=== PATIENT | female | born 1950 | race Caucasian/White ===

== ENCOUNTER → 2016-11-24 | Outpatient (CLI) | payer BC ==
--- NOTE | 2016-11-24 14:36 | US ---
Complete Pelvic Ultrasound INDICATION: Prolapse. TECHNIQUE: Transabdominal and transvaginal pelvic ultrasound is performed. No priors for comparison. FINDINGS: Uterus measures 8.7 x 4.5 x 6.1 cm. No fibroids. Endometrium measures 3.9 mm. No intrinsic mass or fluid collection. Right ovary measures 2.5 x 1.7 x 1.3 cm. Left ovary measures 2.2 x 1.3 x 2.2 cm. Both are sonographic ally normal with normal color Doppler flow. No free fluid or ascites. IMPRESSION: Normal ultrasound of the uterus and ovaries. This ultrasound does not particularly addres s the relationship of the pelvic structures to the pelvic floor and severity of prolapse.
== END ==
LOC: CIMAGING 08:28
DX: N81.4 Uterovaginal prolapse, unspecified (principal)
CPT/HCPCS: 76856-PO

== ENCOUNTER 2019-02-03 15:30 | Emergency (ER) | payer OTHER, BC ==
--- NOTE | 2019-02-03 15:33 | EDPHY ---
H & P Time Seen by Provider: 02/03/19 15:33 HPI/ROS: HPI CHIEF COMPLAINT: Abdominal pain, vomiting HISTORY OF PRESENT ILLNESS: This is a very pleasant 68-year-old female, history of breast cancer, Graves disease and rheumatoid arthritis, presents emergency room with vomiting, and abdominal pain. The patient states that she went for walk around the [place] the walks about 2 miles, toward the end she was feeling more fatigued. She developed some lower mid abdominal cramping. No chest pain no shortness of breath. She thought maybe she had have a bowel movement. She returned home, was unable to have a bowel movement but vomited multiple times. Nonbilious nonbloody. She noted that she was diaphoretic and lightheaded. Denies chest pain or shortness of breath or racing heart. She arrives emergency room does state that she feels better. She denies any complaints time except some lower abdominal pain crampy. Past Medical History: Significant medical history for rheumatoid arthritis, Graves disease, history of breast cancer, High Calcium Score. Past Surgical History: Bilateral mastectomy due to breast cancer, abdominal flap. Social History: Denies drugs or tobacco. Drinks 2 glasses of wine per evening. Family History: Denies significant premature cardiovascular disease other than strokes in mom and dad. ROS REVIEW OF SYSTEMS: 10 Systems were reviewed and negative with the exception of the elements mentioned in the history of present illness. Exam Constitutional triage nursing summary reviewed, vital signs reviewed, awake/ alert. Eyes normal conjunctivae and sclera, EOMI, PERRLA. HENT normal inspection, atraumatic, moist mucus membranes, no epistaxis, neck supple/ no meningismus, no raccoon eyes. Respiratory clear to auscultation bilaterally, normal breath sounds, no respiratory distress, no wheezing. Cardiovascular rate normal, regular rhythm, no murmur, no edema, distal pulses normal. Gastrointestinal soft, non-tender, no rebound, no guarding, normal bowel sounds, no distension, no pulsatile mass. Genitourinary no CVA tenderness. Musculoskeletal no midline vertebral tenderness, full range of motion, no calf swelling, no tenderness of extremities, no meningismus, good pulses, neurovascularly intact. Skin pink, warm, & dry, no rash, skin atraumatic. Neurologic awake, alert and oriented x 3, AAOx3, moves all 4 extremities equally, motor intact, sensory intact, CN II-XII intact, normal cerebellar, normal vision, normal speech. Psychiatric normal mood/affect. Heme/Lymph/Immune no lymphadenopathy. Differential Diagnosis: Differential diagnosis includes but is not limited to and in no particular order: Bowel obstruction, appendicitis, gallbladder disease, diverticulitis, colitis, enteritis, perforated viscus, gastritis, GERD , esophagitis, urinary tract infection, pyelonephritis, kidney stones Medical Decision Making: Plan for this patient IV establishment IV fluid bolus , EKG, troponin, basic labs, electrolytes, and re-evaluate. Re-evaluation: EKG: Time of EKG 1620, sinus rhythm rate of 62, I do not appreciate acute ischemia. No elevation no depression of the ST segment. Rather unremarkable EKG when compared to this patient's old EKG dated 01/10/2014 is unchanged morphology. Trop 0.01. 1738: Patient re-evaluated this time still complaining of abdominal pain. I did recommend a CT scan abdomen pelvis with IV contrast for abdominal pain she has mid abdominal pain. And given that she vomited multiple times and had ongoing abdominal pain recommend further evaluation of this. No epigastric pain. Denies any chest pain or shortness of breath. However she is refusing the CT scan. At this time she is receiving a 2nd L fluid. Will re-evaluate. 1817: patient here in Er, resting, went to bathroom and had a large amount of diarrhea. States she is feeling much better. Still decling CT scan. Long discussion with her about CT imaging given vomiting, and abdominal pain. ( she understands by not having a CT to help delinate her abdominal pain this could limit her diagnosis/misdiagnosis) Patient decline CT. She would like to go home I discussed given that she is not getting a CT, if she has worsening abdominal pain, fever, vomiting, or new complaints she should return to the ER immediately. She understands this. Recommend [place] diet. Recommend returning if worsening abd pain, fever vomiting. EKG interpretation by me on record in [facility] system. Impression time of EKG 192, sinus rhythm rate of 78 no signs of acute ischemia. No ST elevation no ST depression. Unchanged from previous EKGs Labs Reviewed. Lipase normal Lytes okay. Trop 0.01 and 0.00. she has no cp or sob. 1999: Patient requesting discharge, states she wants to go home, denies CP or SOB. States she had "Large Diarrheal movement here and feels better" Re-examined at this time, abd soft, denies significant pain, wants to go home. EKgs negative for ischemia. Trops negative. had nausea/vomting/diarrhea, and now much improved. Most likely GI illness. She understands if she has worsening abdominal pain, fever, vomiting she should return, or if any questions/concerns. Source: Patient, Family - Medical/Surgical History Hx Asthma: No Hx Chronic Respiratory Disease: No Hx Diabetes: No Hx Cardiac Disease: No Hx Renal Disease: No Hx Cirrhosis: No Hx Alcoholism: No Hx HIV/AIDS: No Constitutional: Initial Vital Signs Temperature (C) 36.3 C 02/03/19 15:33 Heart Rate 76 02/03/19 15:33 Respiratory Rate 18 02/03/19 15:33 Blood Pressure 138/68 H 02/03/19 15:33 O2 Sat (%) 100 02/03/19 15:33 O2 Delivery Mode Room Air Allergies/Adverse Reactions: codeine [Codeine] Allergy (Severe, Verified 02/03/19 15:31) Throat swells and closes Home Medications: Medication Instructions Recorded Fluoxetine 01/10/14 Hydrocoychoquinine 01/10/14 Levothyroxine 01/10/14 Lipitor 10 mg (RX) 01/10/14 NIACIN 01/10/14 Lisinopril 02/03/19 Medical Decision Making - Data Points Medications Given: Discontinued Medications Sodium Chloride (Ns) 1,000 mls @ 0 mls/hr IV ONCE ONE PRN Reason: Wide Open Stop: 02/03/19 15:49 Last Admin: 02/03/19 16:32 Dose: 1,000 mls Sodium Chloride (Ns) 1,000 mls @ 0 mls/hr IV ONCE ONE PRN Reason: Wide Open Stop: 02/03/19 17:19 Last Admin: 02/03/19 17:23 Dose: 1,000 mls Point of Care Test Results: CBC CBC Collection Date 02/03/19 CBC Collection Time 16:13 WBC 11.32 RBC 4.76 HGB 14.9 HCT 44.2 PLT 233 Neut # 8.07 Neut 71.3 LYMPH # 2.20 LYMPH 19.4 MCV 92.9 Chemistry 02/03/19 02/03/19 02/03/19 19:15 16:21 16:19 POC Sodium 143 mEq/L mEq/L (135-145) POC Potassium 3.4 mEq/L mEq/L (3.3-5.0) POC Chloride 103.0 mEq/L mEq/L (97-110) POC Total CO2 24 mEq/L mEq/L (22-31) POC BUN 12 mg/dL mg/dL (7-23) POC Creatinine 0.8 mg/dL mg/dL (0.6-1.0) POC Glucose 118 mg/dL H mg/dL (70-100) POC Calcium 11.2 mg/dL H mg/dL (8.5-10.4) POC Total Bilirubin 1.0 mg/dL mg/dL (0.1-1.4) POC AST 27 IU/L IU/L (14-46) POC ALT 21 IU/L IU/L (9-52) POC Alk Phosphatase 89 IU/L IU/L (38-126) POC Troponin I 0.00 ng/mL ng/mL 0.01 ng/mL ng/mL (0.00-0.08) (0.00-0.08) POC Total Protein 7.7 g/dL g/dL (6.3-8.2) POC Albumin 4.1 g/dL g/dL (3.5-5.0) Departure - Departure Disposition: Home, Routine, Self-Care Clinical Impression: Abdominal pain Qualifiers: Abdominal location: generalized Qualified Code(s): R10.84 - Generalized abdominal pain Diarrhea Qualifiers: Diarrhea type: unspecified type Qualified Code(s): R19.7 - Diarrhea, unspecified Condition: Good Instructions: Acute Nausea and Vomiting (ED), Acute Diarrhea (ED), Acute Abdominal Pain (ED) Additional Instructions: 1. [place] diet over the next 48 hours. 2. advance diet slowly. 3. Return to the Er if worsening symptoms, abdominal pain, fever, vomiting, not doing well. Referrals: Dee Dee Melara [Primary Care Provider] - As per Instructions
[2019-02-03] MEDS ORDERED: NS 1,000 ML IV ONE ×2 (15:48→17:18)
[2019-02-03] MEDS ORDERED: IOPAMIDOL (ISOVUE-300) 100 ML BTL ONE (17:33)
[2019-02-03 19:18] VITALS: BP 123/100
--- NOTE | 2019-02-07 08:04 | CPEKG ---
Test Reason : OPEN Blood Pressure : / mmHG Vent. Rate : 062 BPM Atrial Rate : 061 BPM P-R Int : 168 ms QRS Dur : 097 ms QT Int : 456 ms P-R-T Axes : 054 007 035 degrees QTc Int : 463 ms Sinus rhythm Abnormal R-wave progression, early transition Confirmed by Jeferson Dalton ([id number]) on 02/07/2019 8:03:56 AM Referred By: Jeferson Dalton Confirmed By:Jeferson Dalton
--- NOTE | 2019-02-07 08:04 | CPEKG ---
Test Reason : OPEN Blood Pressure : / mmHG Vent. Rate : 078 BPM Atrial Rate : 079 BPM P-R Int : 180 ms QRS Dur : 093 ms QT Int : 408 ms P-R-T Axes : 046 002 037 degrees QTc Int : 465 ms Sinus rhythm Abnormal R-wave progression, early transition Confirmed by Jeferson Dalton ([id number]) on 02/07/2019 8:03:56 AM Referred By: Jeferson Dalton Confirmed By:Jeferson Dalton
== END 2019-02-03 20:05 | disposition home or self-care (01) ==
LOC: CED 15:30
DX: R10.84 Generalized abdominal pain (principal); R19.7 Diarrhea, unspecified; E86.9 Volume depletion, unspecified; M06.00 Rheumatoid arthritis without rheumatoid factor, unspecified site; E05.00 Thyrotoxicosis with diffuse goiter without thyrotoxic crisis or storm
CPT/HCPCS: 71045; 93005; 96360; 96361; 99285; Q9967; 80053-ER; 84484-ER; 85025-QW-ER